=== PATIENT | male | born 1995 | race African-American/Black ===

== ENCOUNTER → 2016-06-08 | Outpatient (CLI) | payer OTHER ==
--- NOTE | ~2016-06-08 | CR20 ---
[facility] A Service of [facility] & [facility] RADIOLOGY TEXT RESULTS PATIENT: AYANA GALEAS LOCATION: [facility] : [birth year] UNIT #: [id number] AGE: [address]: JUANITA MARTINI MD SEX: M ORDER DR: [id number] [facility] [address] [place], [place] [address] [id number] O MR#: [id number] Acc #: [id number] NAME: AYANA GALEAS : 1995 SEX: M STUDY DATE/TIME: 06/08/2016 13:27 UNIT: [facility] ROOM: STUDY DESCRIPTION: CR Ankle Min 3 Views Lt Attending Physician: Juanita Martini M.D. Referring Physician: Juanita Martini M.D. Ordering Physician: Juanita Martini M.D. Primary Care Physician: Juanita Martini M.D. MEDICAL IMAGING REPORT This report is preliminary unless electronic signature is present EXAM Left ankle. HISTORY Left ankle pain for 3 months. FINDINGS AP, lateral, and oblique projections of the ankle show satisfactory integrity of the joint mortise with a smooth articular surface. There is no identifiable fracture, dislocation, or radiopaque foreign body. IMPRESSION Normal ankle. Dictated by... Grey Mackey M.D. THIS IS AN ELECTRONICALLY VERIFIED REPORT Grey Mackey M.D. at 06/09/2016 7:17 AM YANN/leigh TD: 06/08/2016 17:08 JOB #: [id number] MEDICAL IMAGING REPORT COPY
--- NOTE | ~2016-06-08 | CR21 ---
[facility] A Service of [facility] RADIOLOGY TEXT RESULTS PATIENT: AYANA GALEAS LOCATION: [facility] : [birth year] UNIT #: [id number] AGE: [address]: JUANITA MARTINI MD SEX: M ORDER DR: [id number] [facility] [address] [place], [place] [address] [id number] O MR#: [id number] Acc #: [id number] NAME: AYANA GALEAS : 1995 SEX: M STUDY DATE/TIME: 06/08/2016 13:27 UNIT: [facility] ROOM: STUDY DESCRIPTION: CR Ankle Min 3 Views Rt Attending Physician: Juanita Martini M.D. Referring Physician: Juanita Martini M.D. Ordering Physician: Juanita Martini M.D. Primary Care Physician: Juanita Martini M.D. MEDICAL IMAGING REPORT This report is preliminary unless electronic signature is present EXAM Right ankle. DATE OF EXAM 06/08/2016 INDICATION Right ankle pain for 1 month. Twisting injury. FINDINGS AP, lateral, and oblique projections of the ankle show satisfactory integrity of the joint mortise with a smooth articular surface. There is no identifiable fracture, dislocation, or radiopaque foreign body. IMPRESSION Normal right ankle. Dictated by... Grey Mackey M.D. THIS IS AN ELECTRONICALLY VERIFIED REPORT Grey Mackey M.D. at 06/09/2016 7:17 AM YANN/yajaira TD: 06/08/2016 17:12 JOB #: [id number] MEDICAL IMAGING REPORT COPY
== END | disposition home or self-care (01) ==
LOC: CRAD 13:07
DX: M25.571 Pain in right ankle and joints of right foot (principal); M25.572 Pain in left ankle and joints of left foot
CPT/HCPCS: 73610